=== PATIENT | male | born 1955 | race Caucasian/White ===

== ENCOUNTER 2017-09-22 07:08 | Day surgery (SDC) | payer OTHER ==
[~2017-09-22] VITALS: Ht 172.7 cm; Wt 115.2 kg
[2017-09-22] VITALS (7 sets, daily range): BP systolic 82–166; BP diastolic 52–99
[~2017-09-22 07:08] MED LIST: ALEVE220 MG PO; BUSPAR15 MG PO; CARISOPRODOL350 MG PO; CONCERTA27 MG PO; DIOVAN40 MG PO; ELIQUIS5 MG PO; ESCITALOPRAM OX20 MG PO; FUROSEMIDE20 MG PO; GABAPENTIN300 MG PO; GLIMEPIRIDE4 MG PO; HYDROCODON-ACE1 EAC9 PO; JANUVIA100 MG PO; LOPRESSOR50 MG PO; METFORMIN HCL500 MG PO; METHADONE5 MG PO; METHOCARBAMOL750 MG PO; METOPROLOL SUCC50 MG PO; MORPHINE SULFAT15 M1 PO; PERCOCET 5/31 TABLET PO; POTASSIUM-9999 MG PO; PROVENTIL HFA6.7 GM IH; ST. JOSEPH ASPI81 MG PO; TRESIBA FL100 UNIT/1 SC; TYLENOL EXTRA500 MG PO; VALIUM5 MG PO
[2017-09-22] MEDS ORDERED: NORCO 5/3251 TABLET PO (12:22)
== END 2017-09-22 18:40 | disposition home or self-care (01) ==
LOC: SDC 07:08
PROVIDERS: Surgery
DX: K80.10 Calculus of gallbladder with chronic cholecystitis without obstruction (principal); K73.8 Other chronic hepatitis, not elsewhere classified; I25.10 Atherosclerotic heart disease of native coronary artery without angina pectoris; I48.91 Unspecified atrial fibrillation; I10 Essential (primary) hypertension; E11.9 Type 2 diabetes mellitus without complications; F41.1 Generalized anxiety disorder; F32.9 Major depressive disorder, single episode, unspecified; Z79.4 Long term (current) use of insulin; Z88.0 Allergy status to penicillin; Z72.0 Tobacco use; E66.9 Obesity, unspecified; Z68.39 Body mass index [BMI] 39.0-39.9, adult
CPT/HCPCS: 74300; 82948; 88304; 88307; 88313; C1769; J0131; J0330; J1170; J1885; J2710; J3010; J7643; Q0175; S0020; S0074